=== PATIENT | female | born 1945 | race Caucasian/White ===

== ENCOUNTER 2023-04-15 10:36 | Outpatient (CLI) | payer MEDICARE, OTHER ==
[2023-04-15] MEDS ORDERED: CARV3.1244 PO (11:17)
[2023-04-15] MEDS ORDERED: NPH,100V SQ (11:17)
[2023-04-15] MEDS ORDERED: ALBU8HFA INH (12:19)
[2023-04-15] MEDS ORDERED: LEVO25CA4 PO (12:19)
[2023-04-15] MEDS ORDERED: PREDNISONE EYE DROPS EACHEYE (12:19)
[2023-04-15] MEDS ORDERED: ASPI-1071 PO (12:19)
[2023-04-15] MEDS ORDERED: SIMV-342 PO (12:19)
[2023-04-15 12:32] LABS: BILIRUBIN,URINE NEGATIVE (Neg); CLARITY,URINE CLOUDY (Clear); COLOR,URINE YELLOW (Yellow); GLUCOSE, URINE >=1000 mg/dl (Neg); KETONES,URINE NEGATIVE (Neg); LEUKOCYTE ESTERASE ,URINE NEGATIVE (Neg); NITRITES, URINE NEGATIVE (Neg); OCCULT BLOOD,URINE TRACE-INTACT (Neg); PROTEIN,URINE 100 mg/dl (Neg); UROBILINOGEN,URINE 0.2 E.U/dL (0.2-1.0)
[2023-04-15 12:33] LABS: BASOPHILS # (AUTO) 0.1 X10'3 (0-0.2); BASOPHILS % (AUTO) 1.1 % (0-1); EOSINOPHILS # (AUTO) 0.2 X10'3 (0-0.9); EOSINOPHILS % (AUTO) 1.5 % (0-6); LYMPHOCYTES # (AUTO) 2.6 X10'3 (1.1-4.8); LYMPHOCYTES % (AUTO) 25.3 % (21-51); MEAN CORPUSCULAR HEMOGLOBIN 30.6 PG (27.0-31.0); MEAN CORPUSCULAR HGB CONC 33.8 g/dL (33.0-36.5); MEAN CORPUSCULAR VOLUME 90.7 FL (78-98); MEAN PLATELET VOLUME 8.9 FL (7.4-10.4); MONOCYTES # (AUTO) 0.7 X10'3 (0-0.9); MONOCYTES % (AUTO) 6.3 % (2-12); NEUTROPHILS # (AUTO) 6.8 X10'3 (1.8-7.7); NEUTROPHILS % (AUTO) 65.8 % (42-75); PRE OP HEMATOCRIT 42.9 % (35.0-45.0); PRE OP HEMOGLOBIN 14.5 g/dL (12.0-16.0); PRE OP PLATELET COUNT 298 X10'3 (140-440); PRE OP WHITE BLOOD COUNT 10.3 10'3 (4.8-10.8); RED BLOOD COUNT 4.73 X10'6 (4.20-5.60); RED CELL DISTRIBUTION WIDTH 13.6 % (11.5-14.5)
[2023-04-15 12:43] LABS: UA COLLECTION TYPE NON-SPECIFIED
[2023-04-15 12:44] LABS: PRE OP PROTIME 9.9 SECONDS (9.0-12.0)
[2023-04-15 12:46] LABS: PRE OP INR 0.9 INR; SQUAMOUS EPITHELIAL CELL,UR MANY /LPF (FEW)
[2023-04-15 12:50] LABS: BACTERIA,URINE FEW /HPF (Neg); RBC,URINE 0-2 /HPF (0-2); WBC,URINE 0-4 /HPF (0-4); YEAST FEW /HPF (NEGATIVE)
[2023-04-15 14:02] LABS: ALBUMIN 3.4 G/DL (3.4-5.0); ALBUMIN/GLOBULIN RATIO 0.8 (1.1-1.5); ALKALINE PHOSPHATASE 98 IU/L (46-116); BLOOD UREA NITROGEN 13 MG/DL (7-18); CALCIUM 9.5 MG/DL (8.5-10.1); CHLORIDE 101 MMOL/L (99-107); CREATININE 0.81 MG/DL (0.40-0.90); PRE OP ALT 19 U/L (30-65); PRE OP ANION GAP 10 (8-16); PRE OP AST 19 U/L (10-37); PRE OP BILIRUB, TOTAL 0.7 MG/DL (0.0-1.0); PRE OP POTASSIUM 3.8 MMOL/L (3.4-5.1); PRE OP SODIUM 140 MMOL/L (135-145); TOTAL PROTEIN 7.6 G/DL (6.4-8.2); eGFR 69 ML/MIN
[2023-04-15 14:03] LABS: PRE OP GLUCOSE 326 MG/DL (70-104)
== END 2023-04-15 23:59 | disposition home or self-care (01) ==
LOC: LAB 10:36 → EDSTATUS 04-18 11:00
PROVIDERS: ATTEND Surgery
DX: Z01.818 Encounter for other preprocedural examination (principal); C50.411 Malignant neoplasm of upper-outer quadrant of right female breast; I51.7 Cardiomegaly
CPT/HCPCS: 36415; 80053; 81001; 85025; 85610; 85730; 93005

== ENCOUNTER 2023-08-22 07:10 | Day surgery (SDC) | payer MEDICARE ==
[~2023-08-22] VITALS: Ht 154.9 cm; Wt 62.8 kg
[2023-08-22] VITALS (10 sets, daily range): BP systolic 109–188; BP diastolic 43–141; PULSE 67–85; RESP 10–16; TEMP 98.4; O2SAT 97–100
[2023-08-22] MEDS: cefazolin 2gm/D5W 100mL 100 ML IV ONE (05:30)
[2023-08-22] MEDS: DOCUMENT DATE & TIME OF BETA-BLOCKER PO ONE (06:30)
[~2023-08-22 07:10] MED LIST: ALBU8HFA INH; ASPI-1071 PO; BUPIVAcaine/PF 2.5mg/ml (0.25%) 10ml vial ONE; CARV3.1244 PO; GLIP10TA11 PO; LEVO25CA4 PO; LIDOcaine 1% (10mg/ml)w/preservative inj. 20ml MDV ONE; NPH,100V SQ; PREDNISONE EYE DROPS EACHEYE; SIMV-342 PO
[2023-08-22] MEDS: ringers solution, lacted 1,000 ML IV SCH (08:32)
[2023-08-22] MEDS: famotidine 20mg tablet PO ONE (08:33)
[2023-08-22] MEDS: LIDOcaine 1% (10mg/ml)w/preservative inj. 20ml MDV IJ ONE (09:30)
[2023-08-22] MEDS ORDERED: sevoflurane 250ml liquid IH ONE (09:32)
[2023-08-22] MEDS ORDERED: fentaNYL/PF 50MCG/1 ML 2ML syringe ONE (09:36)
[2023-08-22] MEDS ORDERED: midazolam 1 mg/ML 2ml injection ONE (09:36)
[2023-08-22] MEDS ORDERED: morphine 2 MG/ML inj. syringe IV PRN (10:15)
[2023-08-22] MEDS ORDERED: ondansetron/PF 4mg/2ml inj IV PRN (10:15)
[2023-08-22] MEDS ORDERED: proCHLORperazine 10 MG/2 ml inj IV PRN (10:15)
[2023-08-22] MEDS ORDERED: meperidine/PF 25mg/ml syringe IV PRN ×2 (10:15)
[2023-08-22] MEDS ORDERED: ringers solution, lacted 1,000 ML IV SCH (10:15)
[2023-08-22] MEDS ORDERED: propofol inj 20 ML IV ONE (10:26)
[2023-08-22] MEDS: meperidine/PF 25mg/ml syringe IV PRN (11:11)
[2023-08-22] MEDS: morphine 4 MG/ML inj SYRINge IV PRN (11:42)
== END 2023-08-22 11:44 | disposition home or self-care (01) ==
LOC: PAS 07:10
PROVIDERS: ATTEND Surgery
DX: C50.911 Malignant neoplasm of unspecified site of right female breast (principal); I10 Essential (primary) hypertension; E11.9 Type 2 diabetes mellitus without complications; E03.9 Hypothyroidism, unspecified; E78.5 Hyperlipidemia, unspecified; J45.909 Unspecified asthma, uncomplicated; Z79.82 Long term (current) use of aspirin; Z79.84 Long term (current) use of oral hypoglycemic drugs; Z79.890 Hormone replacement therapy; Z79.899 Other long term (current) drug therapy; Z90.49 Acquired absence of other specified parts of digestive tract; Z98.890 Other specified postprocedural states; Z91.040 Latex allergy status; Z91.041 Radiographic dye allergy status
CPT/HCPCS: 19301; 82948; J0690; J2175; J2250; J2270; J2704; J3010; J3490; J7030; J7120; Z7506; Z7508; Z7512; 88307; A4215; A4618; A6258; A7000